=== PATIENT | female | born 1970 | race Caucasian/White ===

== ENCOUNTER 2018-07-29 17:47 | Emergency (ER) | payer MEDICAID ==
[~2018-07-29] VITALS: Ht 160 cm; Wt 57.2 kg
[2018-07-29] MEDS ORDERED: SODIUM CHLORIDE FLUSH 10ML SYR IVF ONE (18:00)
[2018-07-29] MEDS ORDERED: ONDANSETRON 2MG/ML, 2ML IVPush ONE (18:00)
[2018-07-29] MEDS ORDERED: LORazepam 2 MG/ML, 1ML IVPush PRN (18:00)
[2018-07-29] MEDS ORDERED: LORazepam 2 MG/ML, 1ML ONE (18:10)
[2018-07-29] MEDS ORDERED: ONDANSETRON 2MG/ML, 2ML ONE (18:11)
[2018-07-29 18:22] LABS: BASOPHILS # (AUTO) 0.03 x10^3/uL (0-0.1); BASOPHILS % (AUTO) 0 % (0-1); EOSINOPHILS # (AUTO) 0.05 x10^3/uL (0-0.4); EOSINOPHILS % (AUTO) 1 % (1-7); LYMPHOCYTES # (AUTO) 1.11 x10^3/uL (1-3.4); LYMPHOCYTES % (AUTO) 11 % (22-44); MD NO; MEAN CORPUSCULAR HGB CONC 35.1 g/dL (32.4-35.8); MEAN CORPUSCULAR VOLUME 105.6 fL (80-100); MEAN PLATELET VOLUME 7.4 fL (7.4-10.4); MONOCYTES # (AUTO) 0.66 x10^3/uL (0.2-0.8); MONOCYTES % (AUTO) 7 % (2-9); NEUTROPHILS # (AUTO) 7.89 x10^3/uL (1.8-6.8); NEUTROPHILS % (AUTO) 81 % (42-75); PLATELET COUNT 248 x10^3/uL (130-400); RED BLOOD COUNT 4.23 x10^6/uL (3.82-5.3); RED CELL DISTRIBUTION WIDTH 14.8 % (9.6-15.2)
[2018-07-29 18:35] LABS: ALANINE AMINOTRANSFERASE 58 U/L (12-78); ALBUMIN 3.7 g/dL (3.4-5.0); ANION GAP 16 mmol/L (5-15); CALCIUM 8.6 mg/dL (8.5-10.1); CHLORIDE 94 mmol/L (98-107); CREATININE 0.99 mg/dL (0.55-1.02)
[2018-07-29 18:37] LABS: ALKALINE PHOSPHATASE 97 U/L (45-117); BILIRUBIN,TOTAL 2.7 mg/dL (0.2-1.0)
[2018-07-29 18:51] VITALS: BP 144/90
--- NOTE | 2018-07-29 18:52 | NUR ---
PATIENT REPORTS SHE IS FEELING MUCH BETTER WITH THE MEDICATIONS. UP TO THE RESTROOM WITH MOTHER AT SIDE. STEADY GAIT. MOTHER REQUESTED UA CUP FOR SAMPLE BECAUSE PATIENT HAS COMPLAINED TO MOTHER ABOUT 'DOWN THERE S/S'. UA CUP GIVEN. NO CLARIFICATION FROM PATIENT AT THIS TIME
[2018-07-29 19:23] LABS: MICROSCOPIC INDICATED
[2018-07-29 19:36] LABS: CULTURE INDICATED? NO
== END 2018-07-29 19:26 | disposition home or self-care (01) ==
LOC: ED 19:17
DX: F10.239 Alcohol dependence with withdrawal, unspecified (principal); F41.9 Anxiety disorder, unspecified
CPT/HCPCS: 36415; 80053; 80307; 81001; 85025; 93005; 96374; 96375; 99284; J2060; J2405